=== PATIENT | male | born 1945 | race Caucasian/White ===

== ENCOUNTER 2016-06-01 08:51 | Emergency (ER) | payer BC ==
[2016-06-01] MEDS ORDERED: ONDANSETRON HCL IV 4 MG/2 ML VIAL IVP ONE (09:21)
--- NOTE | 2016-06-01 09:26 | Emergency Department Record ---
History of Present Illness - General Chief complaint: Nausea, Vomiting, Diarrhea Stated complaint: NAUSEA/WEAKNESS/BACK PAIN Time Seen by Provider: 06/01/16 09:20 Source: Patient Mode of Arrival: Wheelchair Limitations: No limitations - History of Present Illness Initial comments: 70 yo male presents to ED with a CC of nausea symptoms for the past 5 days. Patient reports nausea and vomiting 5 days ago, vomiting has resolved, however the patient reports continued nausea and weakness symptoms. Patient denies fevers, chills, cough, or abdominal pain symptoms. Patient denies urinary symptoms or change in bowel habits. MD complaint: Nausea Onset/Timin -: Days(s) Associated Abdominal Pain: No Radiation: Back Severity: Moderate Severity scale (1-10): 3 Quality: Aching Consistency: Intermittent Improves with: Rest Worsens with: Movement Context: Sick contacts Associated Symptoms: Denies other symptoms - Related Data Home Medications Medication Instructions Recorded Confirmed Last Taken Aspirin [Aspirin EC] 325 mg PO DAILY 05/13/15 12/10/15 06/01/16 Gabapentin [Neurontin] 900 mg PO TID 05/13/15 12/10/15 06/01/16 Hydrocodone/Acetaminophen [[place] 1 tab PO Q8H PRN 05/13/15 12/10/15 06/01/16 10mg/325mg] Meloxicam [Mobic] 15 mg PO DAILY 05/13/15 12/10/15 06/01/16 Methadone HCl 7.5 mg PO TID 05/13/15 12/10/15 06/01/16 Metoprolol Tartrate [Lopressor] 50 mg PO DAILY 05/13/15 12/10/15 06/01/16 Sertraline HCl [Zoloft] 100 mg PO DAILY 05/13/15 12/10/15 06/01/16 Tamsulosin HCl [Flomax] 0.4 mg PO DAILY 05/13/15 12/10/15 06/01/16 Warfarin Sodium [Coumadin] 5 mg PO ASDIR 05/13/15 12/10/15 06/01/16 Previous Rx's Medication Instructions Recorded Ondansetron [Zofran Odt] 4 mg PO Q4H PRN #20 tab.rapdis 06/01/16 Allergies Allergy/AdvReac Type Severity Reaction Status Date / Time Carbapenems Allergy Unknown PT UNSURE Verified 06/01/16 08:57 OF REACTION Cephalosporins Allergy Unknown PT UNSURE Verified 06/01/16 08:57 OF REACTION Penicillins Allergy Unknown PT UNSURE Verified 06/01/16 08:57 OF REACTION Sulfa (Sulfonamide Allergy Unknown PT UNSURE Verified 06/01/16 08:57 Antibiotics) OF REACTION sulfacetamide Allergy Unknown PT UNSURE Verified 06/01/16 08:57 OF REACTION Allergies: Allergy Unknown PT UNSURE Uncoded 05/11/15 09:29 OF REACTION Travel Screening - Travel/Exposure Within Last 30 Days Have you traveled within the last 30 days?: No - Travel/Exposure Within Last Year Have you traveled outside the [place] in the last year?: No - Additonal Travel Details Have you been exposed to anyone with a communicable illness?: No - Travel Symptoms Symptom Screening: None Review of Systems Constitutional: Denies: Chills, Fever, Malaise, Night sweats Eyes: Denies: Eye discharge, Eye pain ENT: Denies: Congestion, Ear pain, Epistaxis Respiratory: Denies: Cough, Dyspnea Cardiovascular: Denies: Chest pain, Dyspnea on exertion Endocrine: Denies: Fatigue, Heat or cold intolerance Gastrointestinal: Reports: Nausea, Vomiting. Denies: Abdominal pain, Constipation Genitourinary: Denies: Incontinence, Retention Musculoskeletal: Denies: Arthralgia, Back pain, Gout, Joint swelling Skin: Denies: Bruising, Change in color Neurological: Denies: Abnormal gait, Confusion, Seizure Psychiatric: Denies: Anxiety Hematological/Lymphatic: Reports: Easy bleeding (on coumadin). Denies: Anemia, Blood Clots Past Medical History - SOCIAL HISTORY Smoking Status: Former smoker Alcohol Use: None Drug Use: None - RESPIRATORY Hx Respiratory Disorders: Yes Hx Sleep Apnea: Yes Hx of CPAP: Yes - CARDIOVASCULAR Hx Cardio Disorders: Yes Hx Hypertension: Yes (well controlled) Hx Irregular Heartbeat: Yes (afib) Hx Palpitations: Yes (with afib) - NEURO Hx Neuro Disorders: Yes Hx Dizziness: Yes (with afib) Hx Neuropathy: Yes (Peripheral-lower extremities) - GI Hx GI Disorders: Yes Comment:: constipation - Hx Genitourinary Disorders: Yes Hx Bladder Problem: Yes (inability to urinate after surgery) - ENDOCRINE Hx Endocrine Disorders: No - MUSCULOSKELETAL Hx Musculoskeletal Disorders: Yes Hx Arthritis: Yes - PSYCH Hx Psych Problems: No - HEMATOLOGY/ONCOLOGY Hx Hematology/Oncology Disorders: No Family Medical History Any Significant Family History?: Yes Hx Heart Disease: Father Physical Exam - General General Appearance: Alert, Oriented x3, Cooperative, No acute distress Limitations: No limitations - Head Head exam: Atraumatic, Normocephalic, Normal inspection Head exam detail: negative: Abrasion, Contusion, Moctezuma's sign, General tenderness, Hematoma, Laceration - Eye Eye exam: Normal appearance. negative: Conjunctival injection, Periorbital swelling, Periorbital tenderness, Scleral icterus - ENT Ear exam: negative: Auricular hematoma, Auricular trauma Nasal Exam: Foreign body. negative: Active bleeding, Discharge, Dried blood Mouth exam: negative: Drooling, Laceration, Tongue elevation - Neck Neck exam: Normal inspection. negative: Meningismus, Tenderness - Respiratory Respiratory exam: Normal lung sounds bilaterally. negative: Respiratory distress, Rhonchi, Stridor, Wheezes - Cardiovascular Cardiovascular Exam: Irregular rhythm, Tachycardia - GI/Abdominal GI/Abdominal exam: Soft. negative: Rebound, Rigid, Tenderness - Rectal Rectal exam: Deferred - exam: Deferred - Extremities Extremities exam: Normal inspection. negative: Pedal edema, Tenderness - Back Back exam: Denies: CVA tenderness (R), CVA tenderness (L) - Neurological Neurological exam: Alert, Normal gait, Oriented X3 - Psychiatric Psychiatric exam: Normal affect, Normal mood. negative: Anxious - Skin Skin exam: Normal color. negative: Abrasion Type of lesion: negative: abrasion Course Vital Signs 06/01/16 08:58 Temperature 98.2 F Pulse Rate 117 H Respiratory 14 Rate Blood Pressure 171/101 Pulse Ox 99 - Reevaluation(s) Reevaluation #1: 06/01/16 09:46 EKG: Atrial Fibrillation 121 LAS, irregular R-R intervals No acute ST-T wave changes Reevaluation #2: 06/01/16 10:09 Labs reviewed, WBC 3.5 (unchanged from previous), Hgb 12.4 (improved from previous), labs are otherwise grossly unremarkable for an acute process. INR/ UA are pending. Reevaluation #3: 06/01/16 10:13 INR reported to be 9.5. Patient has no active bleeding on examination, will advise the patient to hold coumadin and administer Vitamin K 2.5 mg per Chest guidelines. Reevaluation #4: 02/05/17 11:08 CT Brain: Nothing acute, possible old cerebellar infarct. Reevaluation #5: 06/01/16 11:44 UA appears negative for infection. Patient and his SO were updated on all results, and the patient appears stable for discharge at this time. Medical Decision Making - Lab Data Result diagrams: 06/01/16 09:30 06/01/16 09:30 Disposition Disposition: Discharge Clinical Impression: Nausea Disposition: Home, Self-Care Condition: (2) Stable Instructions: Acute Nausea and Vomiting (ED) Additional Instructions: Return to ED if your symptoms worsen or if you have any concerns. Hold Coumadin until you have followed up with your family doctor. Repeat INR tomorrow morning. Zofran as directed for your nausea symptoms. Prescriptions: Ondansetron [Zofran Odt] 4 mg PO Q4H PRN #20 tab.rapdis PRN Reason: Nausea Forms: Patient Portal Access Time of Disposition: 11:44
[2016-06-01] MEDS ORDERED: 0.9 % SODIUM CHLORIDE 1000ML 1,000 ML IV SCH (09:30)
[2016-06-01 09:49] LABS: HEMATOCRIT 38.5 % (42.0-52.0); HEMOGLOBIN 12.4 gm/dl (14.0-18.0); MEAN CELL VOLUME 88.5 fl (81-97); MEAN CORPUSCULAR HEMOGLOBIN 28.5 pg (27-33); MEAN CORPUSCULAR HGB CONC 32.2 g/dl (32-36); MEAN PLATELET VOLUME 9.7 fl (7.4-10.4); PLATELET COUNT 133 K/uL (130-400); RED BLOOD COUNT 4.35 M/uL (4.40-5.70); RED CELL DISTRIBUTION WIDTH 14.9 % (11.5-14.5); WHITE BLOOD COUNT W/O DIFF 3.5 K/uL (4.2-12.2)
[2016-06-01 09:57] LABS: PLATELET ESTIMATE NORMAL (NORMAL)
[2016-06-01 10:01] LABS: ALB/GLOB RATIO 1.5 (1.1-1.8); ALBUMIN 3.7 gm/dL (3.5-5.0); ALKALINE PHOSPHATASE 45 U/L (38-126); ALT/SGPT 35 U/L (21-72); ANION GAP 15.1 (7-16); AST/SGOT 23 U/L (17-59); BILIRUBIN,TOTAL 0.28 mg/dL (0.2-1.3); BLOOD UREA NITROGEN 21 mg/dL (9-20); CARBON DIOXIDE 24.9 mmol/L (22-30); CREATININE 0.9 mg/dL (0.66-1.25); EST GLOMERULAR FILTRATION RATE > 60 ml/min; GLUCOSE,RANDOM 104 mg/dL (70-110); LIPASE 150 U/L (23-300); TOTAL PROTEIN 6.1 gm/dL (6.3-8.2)
[2016-06-01 10:04] LABS: INFLUENZA A NEGATIVE (NEGATIVE); INFLUENZA B NEGATIVE (NEGATIVE)
[2016-06-01 10:12] LABS: INR 9.59; PROTHROMBIN TIME (PATIENT) 108.4 SECONDS (9.5-12.1)
[2016-06-01] MEDS ORDERED: PHYTONADIONE 5 MG TABLET PO ONE ×2 (10:15→10:33)
[2016-06-01 11:33] LABS: URINE APPEARANCE CLEAR; URINE BILIRUBIN NEGATIVE (NEGATIVE); URINE BLOOD MODERATE (NEGATIVE); URINE COLOR YELLOW; URINE GLUCOSE (UA) NEGATIVE (NEGATIVE); URINE KETONE NEGATIVE (NEGATIVE); URINE LEUKOCYTE ESTERASE NEGATIVE (NEGATIVE); URINE NITRITE NEGATIVE (NEGATIVE); URINE PROTEIN NEGATIVE (NEGATIVE); URINE UROBILINOGEN 0.2 E.U./dL (0.20 - 1.00)
[2016-06-01 11:38] LABS: URINE BACTERIA NONE SEEN; URINE EPITHELIAL CELLS NONE SEEN (FEW); URINE WBC NONE SEEN (0-2/hpf)
--- NOTE | 2016-06-04 08:48 | CT SCAN REPORT ---
EXAM: CT SCAN OF THE HEAD HISTORY: PATIENT HAS NAUSEA AND ACUTE HEADACHE. TECHNIQUE: Serial axial CT scan of the head was performed at 2.5 mm intervals from the base of the skull to the apex without the use of intravenous contrast. No comparison CT's were available. FINDINGS: Mild to moderate generalized parenchymal volume loss is noted. There is no mass or mass effect. There is an area of hypodensity within the peripheral right cerebellum which may represent a chronic infarct. Mild periventricular white matter. Chronic small vessel ischemic changes are identified. There is no CT evidence of intra or extraaxial fluid collection to suggest bleeding. Bone windows demonstrate no CT evidence of a fracture or dislocation of the skull. The paranasal sinuses are unremarkable. 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 NO CT EVIDENCE OF AN ACUTE INTRACRANIAL PROCESS. JOB NUMBER: [id number] MTDD
== END 2016-06-01 11:54 | disposition home or self-care (01) ==
LOC: ER 08:51
DX: R11.0 Nausea (principal); R19.7 Diarrhea, unspecified; R51 Headache; I10 Essential (primary) hypertension; I48.91 Unspecified atrial fibrillation; Z79.01 Long term (current) use of anticoagulants; Z87.891 Personal history of nicotine dependence
CPT/HCPCS: 99284 ×2; 96374; 96361; 83690; 85610; 80053; 81001; 87400; 85027; 70450; 93005; 93010; J2405; J7030

== ENCOUNTER 2017-02-19 10:26 | Emergency (ER) | payer BC ==
[2017-02-19 11:20] LABS: URINE APPEARANCE SL CLOUDY; URINE BILIRUBIN NEGATIVE (NEGATIVE); URINE BLOOD LARGE (NEGATIVE); URINE COLOR YELLOW; URINE GLUCOSE (UA) NEGATIVE (NEGATIVE); URINE KETONE NEGATIVE (NEGATIVE); URINE LEUKOCYTE ESTERASE NEGATIVE (NEGATIVE); URINE NITRITE NEGATIVE (NEGATIVE); URINE PROTEIN NEGATIVE (NEGATIVE); URINE UROBILINOGEN 0.2 E.U./dL (0.20 - 1.00)
[2017-02-19 11:21] LABS: BASO % 0.2 % (0-6); EOS % 3.8 % (0-6); HEMATOCRIT 35.6 % (42.0-52.0); HEMOGLOBIN 11.3 gm/dl (14.0-18.0); LYMPH % 28.8 % (16-45); MEAN CELL VOLUME 90.8 fl (81-97); MEAN CORPUSCULAR HEMOGLOBIN 28.8 pg (27-33); MEAN CORPUSCULAR HGB CONC 31.7 g/dl (32-36); MEAN PLATELET VOLUME 9.4 fl (7.4-10.4); MONO % 13.2 % (0-9); PLATELET COUNT 165 K/uL (130-400); RED BLOOD COUNT 3.92 M/uL (4.40-5.70); RED CELL DISTRIBUTION WIDTH 13.3 % (11.5-14.5); WHITE BLOOD COUNT W/O DIFF 4.7 K/uL (4.2-12.2)
--- NOTE | 2017-02-19 11:30 | Emergency Department Record ---
History of Present Illness - General Chief complaint: Male Urogenital Problem Stated complaint: THINKS HE HAS UTI Time Seen by Provider: 02/19/17 10:38 Source: Patient Mode of Arrival: Ambulatory Limitations: No limitations - History of Present Illness Initial comments: pt has dysuria, flank pain and persistent blood in his urine. pt has a hx of transverse myelitis and has no sensation from the pelvis down MD Complaint: Dysuria Onset/Timin -: Days(s) Radiation: None Severity: Mild Severity scale (1-10): 1 Quality: Burning Consistency: Constant Improves with: None Worsens with: None Reports: Blood in urine, Dysuria, Other - Related Data Allergies Allergy/AdvReac Type Severity Reaction Status Date / Time Carbapenems Allergy Unknown PT UNSURE Verified 06/01/16 08:57 OF REACTION Cephalosporins Allergy Unknown PT UNSURE Verified 06/01/16 08:57 OF REACTION Penicillins Allergy Unknown PT UNSURE Verified 06/01/16 08:57 OF REACTION Sulfa (Sulfonamide Allergy Unknown PT UNSURE Verified 06/01/16 08:57 Antibiotics) OF REACTION sulfacetamide Allergy Unknown PT UNSURE Verified 06/01/16 08:57 OF REACTION Allergies: Allergy Unknown PT UNSURE Uncoded 05/11/15 09:29 OF REACTION Travel Screening - Travel/Exposure Within Last 30 Days Have you traveled within the last 30 days?: No Review of Systems Reviewed: No additional complaints except as noted below Constitutional: Reports: As per HPI. Denies: Chills, Fever, Malaise, Night sweats, Weakness, Weight change Eyes: Reports: As per HPI. Denies: Eye discharge, Eye pain, Photophobia, Vision change ENT: Reports: As per HPI. Denies: Congestion, Dental pain, Ear pain, Epistaxis , Hearing loss, Throat pain Respiratory: Reports: As per HPI. Denies: Cough, Dyspnea, Hemoptysis, Stridor, Wheezes Cardiovascular: Reports: As per HPI. Denies: Arrhythmia, Chest pain, Dyspnea on exertion, Edema, Murmurs, Orthopnea, Palpitations, Paroxysmal nocturnal dyspnea, Rheumatic Fever, Syncope Endocrine: Reports: As per HPI. Denies: Fatigue, Heat or cold intolerance, Polydipsia, Polyuria Gastrointestinal: Reports: As per HPI. Denies: Abdominal pain, Constipation, Diarrhea, Hematemesis, Hematochezia, Melena, Nausea, Vomiting Genitourinary: Reports: As per HPI. Denies: Dysuria, Frequency, Hematuria, Incontinence, Retention, Testicular pain, Testicular mass, Urgency Musculoskeletal: Reports: As per HPI. Denies: Arthralgia, Back pain, Gout, Joint swelling, Myalgia, Neck pain Skin: Reports: As per HPI. Denies: Bruising, Change in color, Change in hair/ nails, Lesions, Pruritus, Rash Neurological: Reports: As per HPI. Denies: Abnormal gait, Confusion, Headache, Numbness, Paresthesias, Seizure, Tingling, Tremors, Vertigo, Weakness Psychiatric: Reports: As per HPI. Denies: Anxiety, Auditory hallucinations, Depression, Homicidal thoughts, Suicidal thoughts, Visual hallucinations Hematological/Lymphatic: Reports: As per HPI. Denies: Anemia, Blood Clots, Easy bleeding, Easy bruising, Swollen glands Past Medical History - SOCIAL HISTORY Smoking Status: Former smoker Alcohol Use: None Drug Use: None - RESPIRATORY Hx Respiratory Disorders: Yes Hx Sleep Apnea: Yes Hx of CPAP: Yes - CARDIOVASCULAR Hx Cardio Disorders: Yes Hx Hypertension: Yes (well controlled) Hx Irregular Heartbeat: Yes (afib) Hx Palpitations: Yes (with afib) - NEURO Hx Neuro Disorders: Yes Hx Dizziness: Yes (with afib) Hx Neuropathy: Yes (Peripheral-lower extremities) - GI Hx GI Disorders: Yes Comment:: constipation - Hx Genitourinary Disorders: Yes Hx Bladder Problem: Yes (inability to urinate after surgery) Hx Prostate Problems: Yes Hx UTI: Yes Comment:: blood in urine - ENDOCRINE Hx Endocrine Disorders: No - MUSCULOSKELETAL Hx Musculoskeletal Disorders: Yes Hx Arthritis: Yes - PSYCH Hx Psych Problems: No - HEMATOLOGY/ONCOLOGY Hx Hematology/Oncology Disorders: No Family Medical History Any Significant Family History?: Yes Hx Heart Disease: Father Physical Exam - General General Appearance: Alert, Oriented x3, Cooperative, Mild distress - Head Head exam: Normal inspection - Eye Eye exam: Normal appearance, PERRL, EOMI Pupils: Normal accommodation - ENT ENT exam: Normal exam, Mucous membranes moist, Normal external ear exam, Normal orophraynx Ear exam: Normal external inspection. negative: External canal tenderness Nasal Exam: Normal inspection. negative: Discharge, Sinus tenderness Mouth exam: Normal external inspection, Tongue normal Teeth exam: Normal inspection. negative: Dental caries Throat exam: Normal inspection. negative: Tonsillar erythema, Tonsillar exudate - Neck Neck exam: Normal inspection, Full ROM. negative: Tenderness - Respiratory Respiratory exam: Normal lung sounds bilaterally. negative: Respiratory distress - Cardiovascular Cardiovascular Exam: Regular rate, Normal rhythm, Normal heart sounds - GI/Abdominal GI/Abdominal exam: Soft, Normal bowel sounds. negative: Tenderness - Rectal Rectal exam: Deferred - exam: Deferred - Extremities Extremities exam: Normal inspection, Full ROM, Normal capillary refill. negative: Tenderness - Back Back exam: Reports: CVA tenderness (R), Full ROM. Denies: Muscle spasm, Rash noted, Tenderness - Neurological Neurological exam: Alert, CN II-XII intact, Normal gait, Oriented X3 - Psychiatric Psychiatric exam: Normal affect, Normal mood - Skin Skin exam: Dry, Intact, Normal color, Warm Course Vital Signs 02/19/17 10:30 Temperature 98.9 F Pulse Rate 57 L Respiratory 18 Rate Blood Pressure 163/82 Pulse Ox 93 L Medical Decision Making - Lab Data Result diagrams: 02/19/17 11:10 02/19/17 11:10 Lab Results 02/19/17 02/19/17 Range/Units 11:10 11:10 WBC 4.7 (4.2-12.2) K/uL RBC 3.92 L (4.40-5.70) M/uL Hgb 11.3 L (14.0-18.0) gm/dl Hct 35.6 L (42.0-52.0) % MCV 90.8 (81-97) fl MCH 28.8 (27-33) pg MCHC 31.7 L (32-36) g/dl RDW 13.3 (11.5-14.5) % Plt Count 165 (130-400) K/uL MPV 9.4 (7.4-10.4) fl Gran % 54.0 (47-80) % Lymphocytes % 28.8 (16-45) % Monocytes % 13.2 H (0-9) % Eosinophils % 3.8 (0-6) % Basophils % 0.2 (0-6) % Urine Color Yellow Urine Appearance Sl cloudy Urine pH 5.5 (5.0-8.0) Ur Specific [place] 1.025 (1.002-1.030) Urine Protein Negative (NEGATIVE) Urine Glucose (UA) Negative (NEGATIVE) Urine Ketones Negative (NEGATIVE) Urine Blood Large H (NEGATIVE) Urine Nitrite Negative (NEGATIVE) Urine Bilirubin Negative (NEGATIVE) Urine Urobilinogen 0.2 (0.20 - 1.00) E.U./dL Ur Leukocyte Esterase Negative (NEGATIVE) Disposition Disposition: Discharge Clinical Impression: Hematuria Qualifiers: Hematuria type: unspecified type Qualified Code(s): R31.9 - Hematuria, unspecified Disposition: Home, Self-Care Condition: (1) Good Instructions: Hematuria (ED), Dysuria (ED) Additional Instructions: follow up with dr daugherty. return sooner if worse Referrals: NORA BOJORQUEZ M.D. [MEDICAL DOCTOR] - [facility] [Provider Group] Forms: Patient Portal Access Quality - Quality Measures Quality Measures: N/A - Blood Pressure Screening Does Patient Have Any of the Following: No Blood Pressure Classification: Pre-Hypertensive BP Reading Systolic Measurement: 163 Diastolic Measurement: 82 Screening for High Blood Pressure: < Pre-Hypertensive BP, F/U Documented > [ [id number]] Pre-Hypertensive Follow-up Interventions: Follow-up with rescreen every year.
[2017-02-19 11:31] LABS: INR 2.54; PROTHROMBIN TIME (PATIENT) 27.7 SECONDS (9.5-12.1)
[2017-02-19 11:33] LABS: URINE RBC >50 (NONE SEEN); URINE WBC 0 - 2 (0-2/hpf)
[2017-02-19 11:34] LABS: ALB/GLOB RATIO 1.6 (1.1-1.8); ALBUMIN 4.2 g/dL (4.0-5.0); ALKALINE PHOSPHATASE 52 U/L (40-129); ALT/SGPT 14 U/L (<41); AST/SGOT 22 U/L (10.0-50.0); BLOOD UREA NITROGEN 23 mg/dL (8-23); EST GLOMERULAR FILTRATION RATE > 60 mL/min; GLUCOSE,RANDOM 108 mg/dL (74-109); TOTAL PROTEIN 6.8 g/dL (6.6-8.7); URINE BACTERIA FEW
--- NOTE | 2017-02-20 08:45 | CT SCAN REPORT ---
EXAM: CT OF THE ABDOMEN AND PELVIS WITHOUT CONTRAST HISTORY: HEMATURIA. TECHNIQUE: CT of the abdomen and pelvis was performed without oral or IV contrast. This limits evaluation of bowel and solid visceral organs. Comparison: CT urogram from 01/19/17. FINDINGS: Limited evaluation of the lung bases is unremarkable. Stable anterolisthesis of L5 on S1 with advanced degenerative changes. Splenic and hepatic granulomata. Limited evaluation of the adrenal glands, pancreas, and kidneys is unremarkable. Negative for urinary tract calculus or hydronephrosis. There is a large amount of stool in the colon. The urinary bladder is not distended, limiting its evaluation. The prostate is enlarged. Correlate with PSA levels. No free air or free fluid. IMPRESSION: 1. ENLARGEMENT OF THE PROSTATE. CORRELATE WITH PSA LEVELS. 2. NEGATIVE FOR URINARY TRACT CALCULUS OR HYDRONEPHROSIS. 3. LARGE AMOUNT OF STOOL IN THE COLON. JOB NUMBER: [id number] MTDD
== END 2017-02-19 12:35 | disposition home or self-care (01) ==
LOC: ER 10:26
DX: R31.0 Gross hematuria (principal); R30.0 Dysuria
CPT/HCPCS: 74176; 80053; 81001; 85025; 85610; 99283; 99284